=== PATIENT | female | born 1960 | race Caucasian/White ===

== ENCOUNTER 2016-10-24 11:16 | Emergency (ER) | payer OTHER ==
[~2016-10-24] VITALS: Ht 167.6 cm; Wt 73.0 kg
[2016-10-24 11:23] VITALS: BP 99/57; TEMP 97.9; O2SAT 90
[2016-10-24 11:50] LABS: AUTOMATED NEUTROPHIL # 7.1 TH/MM3 (1.8-7.7); BASOPHIL # 0.1 TH/MM3 (0-0.2); BASOPHIL % 1.1 % (0.0-2.0); EOSINOPHIL # 0.7 TH/MM3 (0-0.4); EOSINOPHIL % 6.9 % (0.0-4.0); HEMATOCRIT 35.8 % (35.0-46.0); HEMO FLAGS DIFF FINAL; LYMPH % 14.1 % (9.0-44.0); LYMPHOCYTE # 1.4 TH/MM3 (1.0-4.8); MEAN CELL VOLUME 91.1 FL (80.0-100.0); MEAN CORPUSCULAR HEMOGLOBIN 29.6 PG (27.0-34.0); MEAN CORPUSCULAR HGB CONC 32.5 % (32.0-36.0); MONO % 8.4 % (0.0-8.0); NEUT % 69.5 % (16.0-70.0); PLATELET COUNT 413 TH/MM3 (150-450); RED BLOOD COUNT 3.93 MIL/MM3 (4.00-5.30); RED CELL DISTRIBUTION WIDTH 14.4 % (11.6-17.2); WHITE BLOOD COUNT 10.2 TH/MM3 (4.0-11.0)
[2016-10-24 11:57] VITALS: BP 101/60; PULSE 63; RESP 18; O2SAT 95; O2SAT 97
[2016-10-24 11:57] LABS: APTT (PATIENT) 22.2 SEC (24.3-30.1); PROTHROMBIN TIME - PATIENT 11.4 SEC (9.8-11.6)
[2016-10-24] MEDS ORDERED: SODIUM CHLOR 0.9% 1000 ML INJ 1,000 ML IV ONE (12:00)
[2016-10-24 12:10] LABS: ALKALINE PHOSPHATASE 115 U/L (45-117); ALT (GPT) 38 U/L (10-53); ANION GAP 10 MEQ/L (5-15); AST (GOT) 26 U/L (15-37); BICARBONATE 25.2 MEQ/L (21.0-32.0); BLOOD UREA NITROGEN 21 MG/DL (7-18); CHLORIDE 99 MEQ/L (98-107); GLOMERULAR FILTRATION RATE 46 ML/MIN (>89); MAGNESIUM 2.6 MG/DL (1.5-2.5); POTASSIUM 4.4 MEQ/L (3.5-5.1); SODIUM (NA) 134 MEQ/L (136-145); TOTAL BILIRUBIN ADULT 0.3 MG/DL (0.2-1.0)
[2016-10-24 12:11] LABS: CREATINE KINASE 59 U/L (26-192)
--- NOTE | 2016-10-24 12:12 | PD ---
HPI Chief Complaint: General Weakness Time Seen by Provider: 11:33 Travel History International Travel<30 days: No Contact w/Intl Traveler<30days: No Traveled to known affect area: No History of Present Illness HPI Patient is a 55-year-old female who was brought to the emergency room by EMS from the [place] for evaluation of weakness. As per patient, she recently had a CABG 3 weeks ago and also suffered a stroke during her surgery. Patient reports that she has left sided deficits which are improving with rehabilitation. Patient reports that she went to the [place] today for follow-up, reports that fine [facility] to [facility]. Patient reports at the [place], patient began to "not feel well". Patient reports that she has had a nonproductive cough, denies fevers or chills. Denies any chest pain or shortness of breath. As per EMS, patient's initial blood pressure was 84/64, after sitting patient up, but pressure went to 94/64, patient is a diabetic, blood sugar was in the 380s. Patient denies any fevers or chills, reports no chest pain or shortness of breath. She reports that she just "doesn't feel well." Patient with no abdominal pain, nausea or vomiting or diarrhea. PFSH Past Medical History Cardiac Catheterization: Yes Cardiovascular Problems: Yes COPD: No (HEAVY PRIOR SMOKER) Cerebrovascular Accident: Yes (LEFT DEFECIT, ) Coronary Artery Disease: Yes Diabetes: Yes Patient Takes Glucophage: No Diminished Hearing: Yes (HAS HEARING AIDES - WONT WEAR) Myocardial Infarction: Yes Tetanus Vaccination: < 5 Years ?: Not Menopausal: Yes Past Surgical History Abdominal Aneurysm Repair: Yes (2000) Cardiac Surgery: Yes ([facility]) Coronary Artery Bypass Graft: Yes (TWO WEEKS AGO) Social History Alcohol Use: No Tobacco Use: No (A YEAR AGO 3 PPD, HAS TITRATED TO NONE OVER LAST 8 MONTHS) Substance Use: No Allergies-Medications (Allergen,Severity, Reaction): Coded Allergies: Ampicillin (Verified Allergy, Severe, RASH, 10/24/16) Penicillin (Verified Allergy, Severe, RASH, 10/24/16) Review of Systems General / Constitutional: No: Fever Eyes: No: Visual changes HENT: No: Headaches Cardiovascular: No: Chest Pain or Discomfort Respiratory: Positive: Cough, No: Shortness of Breath Gastrointestinal: No: Abdominal Pain Genitourinary: No: Dysuria Musculoskeletal: No: Pain Skin: No Rash Neurologic: Positive: Weakness Psychiatric: No: Depression Endocrine: No: Polydipsia Hematologic/Lymphatic: No: Easy Bruising Physical Exam Narrative GENERAL: mild distress SKIN: Focused skin assessment warm/dry. HEAD: Atraumatic. Normocephalic. EYES: Pupils equal and round. No scleral icterus. No injection or drainage. ENT: No nasal bleeding or discharge. Mucous membranes pink and moist. NECK: Trachea midline. No JVD. CARDIOVASCULAR: Regular rate and rhythm. No murmur appreciated. incisions c/d/ i with no drainage RESPIRATORY: No accessory muscle use. Clear to auscultation. Breath sounds equal bilaterally. GASTROINTESTINAL: Abdomen soft, non-tender, nondistended. Hepatic and splenic margins not palpable. MUSCULOSKELETAL: No obvious deformities. No clubbing. No cyanosis. No edema. NEUROLOGICAL: Awake and alert. No obvious cranial nerve deficits. Motor grossly within normal limits. Normal speech. PSYCHIATRIC: Appropriate mood and affect; insight and judgment normal. Data Data Last Documented VS Vital Signs Date Time Temp Pulse Resp B/P Pulse Ox O2 Delivery O2 Flow Rate FiO2 10/24/16 11:57 63 18 101/60 97 Room Air 10/24/16 11:23 97.9 Orders B-Type Natriuretic Peptide (10/24/16 11:34) Ckmb (Isoenzyme) Profile (10/24/16 11:34) Complete Blood Count With Diff (10/24/16 11:34) Comprehensive Metabolic Panel (10/24/16 11:34) Magnesium (Mg) (10/24/16 11:34) Prothrombin Time / Inr (Pt) (10/24/16 11:34) Act Partial Throm Time (Ptt) (10/24/16 11:34) Troponin I (10/24/16 11:34) Chest, Single Ap (10/24/16 11:34) Ecg Monitoring (10/24/16 11:34) Bilateral Bp Monitoring (10/24/16 11:34) Iv Access Insert/Monitor (10/24/16 11:34) Oximetry (10/24/16 11:34) Blood Glucose (10/24/16 11:34) Sodium Chlor 0.9% 1000 Ml Inj (Ns 1000 M (10/24/16 12:00) Urinalysis - C+S If Indicated (10/24/16 13:14) Labs Laboratory Tests Test 10/24/16 10/24/16 11:40 13:05 White Blood Count 10.2 TH/MM3 Red Blood Count 3.93 MIL/MM3 Hemoglobin 11.6 GM/DL Hematocrit 35.8 % Mean Corpuscular Volume 91.1 FL Mean Corpuscular Hemoglobin 29.6 PG Mean Corpuscular Hemoglobin 32.5 % Concent Red Cell Distribution Width 14.4 % Platelet Count 413 TH/MM3 Mean Platelet Volume 8.0 FL Neutrophils (%) (Auto) 69.5 % Lymphocytes (%) (Auto) 14.1 % Monocytes (%) (Auto) 8.4 % Eosinophils (%) (Auto) 6.9 % Basophils (%) (Auto) 1.1 % Neutrophils # (Auto) 7.1 TH/MM3 Lymphocytes # (Auto) 1.4 TH/MM3 Monocytes # (Auto) 0.9 TH/MM3 Eosinophils # (Auto) 0.7 TH/MM3 Basophils # (Auto) 0.1 TH/MM3 CBC Comment DIFF FINAL Differential Comment Prothrombin Time 11.4 SEC Prothromb Time International 1.0 RATIO Ratio Activated Partial 22.2 SEC Thromboplast Time Sodium Level 134 MEQ/L Potassium Level 4.4 MEQ/L Chloride Level 99 MEQ/L Carbon Dioxide Level 25.2 MEQ/L Anion Gap 10 MEQ/L Blood Urea Nitrogen 21 MG/DL Creatinine 1.21 MG/DL Estimat Glomerular Filtration 46 ML/MIN Rate Random Glucose 267 MG/DL Calcium Level 8.7 MG/DL Magnesium Level 2.6 MG/DL Total Bilirubin 0.3 MG/DL Aspartate Amino Transf 26 U/L (AST/SGOT) Alanine Aminotransferase 38 U/L (ALT/SGPT) Alkaline Phosphatase 115 U/L Total Creatine Kinase 59 U/L Troponin I 0.04 NG/ML B-Type Natriuretic Peptide 97 PG/ML Total Protein 6.5 GM/DL Albumin 2.8 GM/DL Urine Color YELLOW Urine Turbidity CLEAR Urine pH 7.0 Urine Specific [place] 1.033 Urine Protein NEG mg/dL Urine Glucose (UA) 1000 mg/dL Urine Ketones NEG mg/dL Urine Occult Blood NEG Urine Nitrite NEG Urine Bilirubin NEG Urine Urobilinogen LESS THAN 2.0 MG/DL Urine Leukocyte Esterase SMALL Urine RBC 3 /hpf Urine WBC 3 /hpf Urine Squamous Epithelial 2 /hpf Cells Urine Bacteria RARE /hpf Microscopic Urinalysis Comment CULT NOT INDICATED MDM Medical Decision Making Medical Screen Exam Complete: Yes Emergency Medical Condition: Yes Interpretation(s) EKG at 1129: NSR at 63bpm, qt/qtc: 471/479, st depression, V4-V6, II, avL Vital Signs Date Time Temp Pulse Resp B/P Pulse Ox O2 Delivery O2 Flow Rate FiO2 10/24/16 11:57 63 18 101/60 97 Room Air 10/24/16 11:57 95 Room Air 10/24/16 11:30 66 97 Room Air 10/24/16 11:23 97.9 99/57 90 Differential Diagnosis ACS, arrhythmia, electrolyte abnormality, pneumonia, influenza, UTI Narrative Course Patient is a 55-year-old female who was brought to the emergency room by [facility] after she found to be hypotensive at the [place] today. Patient reports that she has not been feeling well since her appointment today at 10 AM at the [place]. Patient reports that she has had a cough, reports the cough has been nonproductive. Patient is status post CABG, CVA, with left- sided deficits. Patient is alert and oriented 3, with only complains of nonproductive cough. Patient with no chest pain or shortness of breath at this time. Patient with no other complaints. Laboratory Tests Test 10/24/16 11:40 White Blood Count 10.2 TH/MM3 (4.0-11.0) Red Blood Count 3.93 MIL/MM3 (4.00-5.30) Hemoglobin 11.6 GM/DL (11.6-15.3) Hematocrit 35.8 % (35.0-46.0) Mean Corpuscular Volume 91.1 FL (80.0-100.0) Mean Corpuscular Hemoglobin 29.6 PG (27.0-34.0) Mean Corpuscular Hemoglobin 32.5 % Concent (32.0-36.0) Red Cell Distribution Width 14.4 % (11.6-17.2) Platelet Count 413 TH/MM3 (150-450) Mean Platelet Volume 8.0 FL (7.0-11.0) Neutrophils (%) (Auto) 69.5 % (16.0-70.0) Lymphocytes (%) (Auto) 14.1 % (9.0-44.0) Monocytes (%) (Auto) 8.4 % (0.0-8.0) Eosinophils (%) (Auto) 6.9 % (0.0-4.0) Basophils (%) (Auto) 1.1 % (0.0-2.0) Neutrophils # (Auto) 7.1 TH/MM3 (1.8-7.7) Lymphocytes # (Auto) 1.4 TH/MM3 (1.0-4.8) Monocytes # (Auto) 0.9 TH/MM3 (0-0.9) Eosinophils # (Auto) 0.7 TH/MM3 (0-0.4) Basophils # (Auto) 0.1 TH/MM3 (0-0.2) CBC Comment DIFF FINAL Differential Comment Prothrombin Time 11.4 SEC (9.8-11.6) Prothromb Time International 1.0 RATIO Ratio Activated Partial 22.2 SEC Thromboplast Time (24.3-30.1) Sodium Level 134 MEQ/L (136-145) Potassium Level 4.4 MEQ/L (3.5-5.1) Chloride Level 99 MEQ/L (98-107) Carbon Dioxide Level 25.2 MEQ/L (21.0-32.0) Anion Gap 10 MEQ/L (5-15) Blood Urea Nitrogen 21 MG/DL (7-18) Creatinine 1.21 MG/DL (0.50-1.00) Estimat Glomerular Filtration 46 ML/MIN (>89) Rate Random Glucose 267 MG/DL (74-106) Calcium Level 8.7 MG/DL (8.5-10.1) Magnesium Level 2.6 MG/DL (1.5-2.5) Total Bilirubin 0.3 MG/DL (0.2-1.0) Aspartate Amino Transf 26 U/L (15-37) (AST/SGOT) Alanine Aminotransferase 38 U/L (10-53) (ALT/SGPT) Alkaline Phosphatase 115 U/L (45-117) Total Creatine Kinase 59 U/L (26-192) Troponin I 0.04 NG/ML (0.02-0.05) B-Type Natriuretic Peptide 97 PG/ML (0-100) Total Protein 6.5 GM/DL (6.4-8.2) Albumin 2.8 GM/DL (3.4-5.0) Last Impressions Chest X-Ray 10/24/16 1134 Signed Impressions: Service Date/Time: Monday, October 24, 2016 11:35 - CONCLUSION: Cardiomegaly and previous CABG. Thiago Arroyo MD Patient reevaluated, patient reports that she is feeling much better at this time. Patient's systolic blood pressure is 124/78, patient reports that she feels 100% better at this time. Patient's sister is at bedside, I did review all labs and all studies with patient and her sister in detail. I did offer observation status for patient given her symptoms today, she does not want to be admitted to the hospital and would rather be discharged from hospital. I did review signs and symptoms and when patient should return to the emergency room, plan to discharge patient to home with outpatient follow-up. As far as patient's blood pressures concern, patient's sister reports that patient was recently taken out of the rehabilitation center AGAINST MEDICAL ADVICE, reports that she as well as her daughter has been taking care of patient , reports that she wasn't sent home with a medication list and did give her lisinopril 40mg as well as amlodipine 10 mg just as she was taking as an outpatient prior to her CABG. After talking to patient's physician, she was taken off of lisinopril 40 mg daily as this may be the reason why her blood pressure has been low. Reports that after today's appointment, she was told to only give amlodipine. Patient's blood sugar is 246, reports that she recently started on a sliding scale insulin and they have been monitoring her blood sugar Patient re-evaluated, reports that she is ready to be discharged to home. Patient reports that she feels much better, patient does not want to admit her to the hospital at this time. Patient's sister does feel comfortable taking patient home at this time. Plan to stop taking her lisinopril, [facility] and will return to emergency room as needed. Diagnosis Primary Impression: Generalized weakness Additional Impressions: Dehydration Hyperglycemia Patient Instructions: General Instructions Additional Instructions: Please drink plenty of fluids Return to emergency rooms if her symptoms worsen or progress Return to the emergency room as needed Please call your primary care doctor first thing for earliest follow-up in 2-3 days Disposition: 01 DISCHARGE HOME Condition: Stable Kely Freire DO October 24, 2016 12:12
--- NOTE | 2016-10-24 12:21 | RADRPT ---
EXAM DATE/TIME: 10/24/2016 11:35 [facility] COMPARISON: No previous studies available for comparison. INDICATIONS : Shortness of breath with wheezing. CABG 2 weeks ago. MEDICAL HISTORY : Myocardial infarction. SURGICAL HISTORY : CABG. ENCOUNTER: Initial ACUITY: 2 days PAIN SCORE: 0/10 LOCATION: Bilateral chest FINDINGS: A single view of the chest demonstrates the lungs to be symmetrically aerated without evidence of mas s, infiltrate or effusion. Cardiomegaly and previous CABG. The cardiomediastinal contours are unrema rkable. Osseous structures are intact. CONCLUSION: Cardiomegaly and previous CABG. Thiago Arroyo MD on October 24, 2016 at 12:18 Board Certified Radiologist. This report was verified electronically.
[2016-10-24 14:22] LABS: BACTERIA, URINE RARE /hpf; BLOOD, URINE NEG (NEG); COMMENT (UR) CULT NOT INDICATED; CULTURE IF INDICATED CULT NOT INDICATED; GLUCOSE,URINE 1000 mg/dL (NEG); KETONE, URINE NEG (NEG); NITRITE,URINE NEG (NEG); SQUAMOUS EPITHELIAL CELL URINE 2 /hpf (0-5); URINE COLOR YELLOW (YELLW/STRAW)
[2016-10-24 15:09] VITALS: BP 124/81; PULSE 72; RESP 20; O2SAT 100
--- NOTE | 2016-10-25 06:22 | EKG ---
Date Performed: 10/24/2016 Time Performed: 11:29:06 PTAGE: 55 years EKG: Sinus rhythm MARKED LEFT AXIS DEVIATION LEFT VENTRICULAR HYPERTROPHY AND ST-T CHANGE ABNORMAL ECG NO PREVIOUS TRACING DOCTOR: David Reis Interpretating Date/Time 10/25/2016 06:21:52
== END 2016-10-24 15:26 | disposition home or self-care (01) ==
LOC: NEPC 11:16
DX: R53.1 Weakness (principal); E86.0 Dehydration; E11.65 Type 2 diabetes mellitus with hyperglycemia; R94.31 Abnormal electrocardiogram [ECG] [EKG]; I63.9 Cerebral infarction, unspecified; I25.2 Old myocardial infarction; Z87.891 Personal history of nicotine dependence; Z95.1 Presence of aortocoronary bypass graft
CPT/HCPCS: 71010; 80053; 81001; 82550; 83735; 83880; 84484; 85025; 85610; 85730; 93005; 96360; 96361; 99285; J7030